=== PATIENT | female | born 1990 | race Two or more races ===

== ENCOUNTER 2017-08-14 18:58 | Emergency (ER) | payer MEDICAID ==
[~2017-08-14] VITALS: Ht 157.5 cm; Wt 145.1 kg
[~2017-08-14 18:58] MED LIST: FURO40TA4; POTA8TAB2
[2017-08-14 19:38] LABS: Basophils # (auto) 0.1 uL; Basophils % (auto) 1.3 % (0.0-2.0); Eosinophils # (auto) 0.1 uL; Eosinophils % (auto) 2.4 % (0.0-7.0); Hematocrit 34.4 % (36.0-46.0); Hemoglobin 11.5 g/dL (12.2-16.2); Lymphocytes # (auto) 1.1 uL; Lymphocytes % (auto) 19.8 % (10.0-50.0); Mean Corpuscular Hemoglobin 29.8 pg (28.0-32.0); Mean Corpuscular Hgb Conc. 33.3 g/dL (32.0-36.0); Mean Corpuscular Volume 89.5 fL (80.0-100.0); Mean Platelet Volume 7.7 fL (6.9-10.8); Monocytes # (auto) 0.4 uL; Monocytes % (auto) 6.8 % (0.0-12.0); Neutrophils % (auto) 69.7 % (37.0-80.0); Nucleated Red Blood Cells % 0.2 %; Platelet Count (auto) 203 10^3/uL (140-450); Red Cell Distribution Width 15.3 % (11.8-14.3); White Blood Cell 5.7 10^3/uL (4.4-10.8)
[2017-08-14 19:50] LABS: Urine Bilirubin Negative (Negative); Urine Blood 3+ /uL (Negative); Urine Color Yellow (Yellow); Urine Glucose Normal (Normal); Urine Ketone Negative (Negative); Urine Mucus MODERATE (None Seen); Urine Nitrite Negative (Negative); Urine RBC 144 /hpf (0 - 4); Urine Squamous Epithelial Cell FEW /hpf (<5)
[2017-08-14 19:55] LABS: Albumin 3.7 g/dL (3.4-5.0); BUN/Creatinine Ratio 19.3; Potassium 3.9 mmol/L (3.5-5.1)
[2017-08-14 19:58] LABS: Bilirubin, Total 0.7 mg/dL (0.2-1.0); Total Protein 7.7 g/dL (6.4-8.2)
[2017-08-14] MEDS ORDERED: LIDOCAINE 1% HCL (LOCAL ANESTH.) INJ 20ML MDV ONE (20:44)
[2017-08-14] MEDS ORDERED: HYDROcodone-ACET 10/325MG TAB PO ONE (20:45)
[2017-08-14] MEDS ORDERED: cefTRIAXone SOD 1,000 MG VL IM ONE (20:45)
[2017-08-14 20:48] VITALS: BP 125/69
== END 2017-08-14 21:06 | disposition home or self-care (01) ==
LOC: ER 19:05
DX: L03.115 Cellulitis of right lower limb (principal); I89.0 Lymphedema, not elsewhere classified; N39.0 Urinary tract infection, site not specified; F17.210 Nicotine dependence, cigarettes, uncomplicated
CPT/HCPCS: 36415; 80053; 81001; 81025; 85025; 93971; 96372; 99285; J0696; J2001

== ENCOUNTER 2017-09-13 13:59 | Emergency (ER) | payer MEDICAID ==
[~2017-09-13] VITALS: Ht 157.5 cm; Wt 116.1 kg
[2017-09-13 14:46] VITALS: BP 130/84
== END 2017-09-13 15:19 | disposition home or self-care (01) ==
LOC: ER 13:59
DX: I89.0 Lymphedema, not elsewhere classified (principal); F17.210 Nicotine dependence, cigarettes, uncomplicated; Z88.6 Allergy status to analgesic agent; Z88.8 Allergy status to other drugs, medicaments and biological substances; Z79.899 Other long term (current) drug therapy

== ENCOUNTER 2017-10-17 15:57 | Emergency (ER) | payer MEDICAID ==
[~2017-10-17] VITALS: Ht 157.5 cm; Wt 127.9 kg
[2017-10-17 18:43] VITALS: BP 157/95
[2017-10-17] MEDS ORDERED: HYDROcodone-ACET 10/325MG TAB PO ONE (18:45)
== END 2017-10-17 18:43 | disposition home or self-care (01) ==
LOC: ER 16:04
DX: I89.0 Lymphedema, not elsewhere classified (principal); F17.210 Nicotine dependence, cigarettes, uncomplicated; Z88.8 Allergy status to other drugs, medicaments and biological substances

== ENCOUNTER 2018-06-22 23:26 | Emergency (ER) | payer MEDICAID, OTHER ==
[~2018-06-22] VITALS: Ht 157.5 cm; Wt 113.4 kg
[2018-06-22 23:45] VITALS: BP 126/70
== END 2018-06-23 01:01 | disposition left against medical advice (07) ==
LOC: ER 23:28
DX: O46.8X1 Other antepartum hemorrhage, first trimester (principal); Z53.21 Procedure and treatment not carried out due to patient leaving prior to being seen by health care provider; Z3A.10 10 weeks gestation of pregnancy

== ENCOUNTER 2018-09-18 10:13 | Emergency (ER) | payer MEDICAID, OTHER ==
[~2018-09-18] VITALS: Ht 157.5 cm; Wt 117.9 kg
[2018-09-18] MEDS ORDERED: SODIUM CHLORIDE 0.9% 1,000 ML IVB ONE (10:17)
[2018-09-18] MEDS ORDERED: ONDANSETRON HCL 4 MG/2 ML VIAL IV ONE (10:30)
[2018-09-18 10:49] LABS: Urine Bacteria NONE SEEN /hpf (None Seen); Urine Blood Negative /uL (Negative); Urine Mucus FEW (None Seen); Urine Specific Gravity 1.018 (1.001-1.035); Urine WBC 34 /hpf (0 - 5)
[2018-09-18 10:56] LABS: Basophils # (auto) 0 uL; Basophils % (auto) 0.2 % (0.0-2.0); Eosinophils # (auto) 0 uL; Eosinophils % (auto) 0.1 % (0.0-7.0); Hematocrit 33.1 % (36.0-46.0); Hemoglobin 11.2 g/dL (12.2-16.2); Lymphocytes # (auto) 0.7 uL; Mean Corpuscular Hemoglobin 31.7 pg (28.0-32.0); Mean Corpuscular Hgb Conc. 33.8 g/dL (32.0-36.0); Mean Corpuscular Volume 93.7 fL (80.0-100.0); Monocytes # (auto) 0.3 uL; Monocytes % (auto) 2.8 % (0.0-12.0); Neutrophils # (auto) 9.9 uL; Neutrophils % (auto) 90.9 % (37.0-80.0); Platelet Count (auto) 182 10^3/uL (140-450); Red Blood Cells 3.53 10^6/uL (4.0-5.20); Red Cell Distribution Width 15.2 % (11.8-14.3); White Blood Cell 10.9 10^3/uL (4.4-10.8)
[2018-09-18 11:04] LABS: Albumin 2.6 g/dL (3.4-5.0); Magnesium 1.9 mg/dL (1.6-2.6); Potassium 3.3 mmol/L (3.5-5.1)
[2018-09-18 11:07] LABS: BUN/Creatinine Ratio 9.1; Bilirubin, Total 0.4 mg/dL (0.2-1.0); Total Protein 6.9 g/dL (6.4-8.2)
[2018-09-18] MEDS ORDERED: ACETAMINOPHEN 325 MG TAB PO ONE (11:15)
[2018-09-18] MEDS ORDERED: NITROFURANTOIN (MONO) 100 mg CAP PO ONE (11:15)
[2018-09-18] MEDS ORDERED: HYDROcodone-ACET 10/325MG TAB PO ONE (12:45)
[2018-09-18 14:09] VITALS: BP 97/54
== END 2018-09-18 14:33 | disposition home or self-care (01) ==
LOC: EDBD 10:13 → ER 10:15
DX: O23.42 Unspecified infection of urinary tract in pregnancy, second trimester (principal); O99.332 Smoking (tobacco) complicating pregnancy, second trimester; O26.892 Other specified pregnancy related conditions, second trimester; Z88.6 Allergy status to analgesic agent; Z3A.22 22 weeks gestation of pregnancy
CPT/HCPCS: 36415; 76805; 76817; 80053; 81001; 81025; 82010; 83735; 85025; 94761